=== PATIENT | male | born 1980 | race Caucasian/White ===

== ENCOUNTER 2016-04-27 18:27 | Inpatient (IN) | payer OTHER ==
[2016-04-27] MEDS ORDERED: LORazepam 2 MG/ML INJ IVP ONE ×2 (18:48→20:29)
--- NOTE | 2016-04-27 18:52 | CPEKG ---
Heart Rate: 94 RR Interval: 638 P-R Interval: 136 QRSD Interval: 94 QT Interval: 340 QTC Interval: 426 P Williams: 61 QRS Williams: 30 T Wave Williams: 36 EKG Severity - NORMAL ECG - EKG Impression: SINUS RHYTHM Electronically Signed By: Vahe Machuca 27-Apr-2016 19:00:43
--- NOTE | 2016-04-27 19:00 | EDPHY ---
H & P Time Seen by Provider: 04/27/16 18:43 HPI/ROS: CHIEF COMPLAINT: Hurts when I breathe HISTORY OF PRESENT ILLNESS: This 36-year-old man had a left knee injury on 04/03 wall long boarding. He had a tibial plateau and an ACL fracture and is scheduled to have surgery by an orthopedic surgeon in [place]. He has been wearing a left knee immobilizer since the injury. Starting yesterday afternoon and last night started having tightness all over his back with pain when he breathes in. Symptoms are severe today and associated with a "knot under my shoulder blade" sensation which is worsening. No hemoptysis. No additional leg swelling. Worse with exertion. Better standing up or lying down. REVIEW OF SYSTEMS: Eye: no change in vision ENT: no sore throat Cardiac: HPI Pulmonary: HPI Abdomen: no vomiting, diarrhea, abdominal pain Musculoskeletal: Left knee immobilizer Skin: no rash Neuro: no headache Constitutional: no fever : no urinary symptoms A comprehensive 10 point review of systems is otherwise negative aside from elements mentioned in the history of present illness. PAST MEDICAL HISTORY: Negative except for as above Social history: Nonsmoker General Appearance: Alert and conversant, cooperative. Eyes: No scleral icterus. ENT, Mouth: Normal mucous membranes. Respiratory: Mildly tachypneic but no wheezing or rhonchi or rales. Cardiovascular: Regular rate and rhythm. Tachycardic Gastrointestinal: Abdomen is soft and non tender. Neurological: Alert and oriented x3. Normally conversant. Face symmetric, normal movement and sensation in all extremities. Skin: Warm and dry, no rashes. Musculoskeletal: Left knee immobilizer but left foot is normal pulse and motor and sensory. Psychiatric: Not agitated. Emergency Department course/MDM: Patient has pleuritic chest pain and dyspnea in the setting of lower extremity immobilization for 3 weeks and initial resting pulse of 124. My suspicion for pulmonary embolism is moderate to high and I do not think and negative D-dimer would be adequate to exclude the diagnosis and so we will proceed directly to CT scan. Discussed and consented. 2000: Results discussed with the patient. Lovenox and admission to the hospital. 2030: Increased pain treated with 0.5 mg IV Dilaudid 1 mg IV Ativan. Smoking Status: Never smoked Constitutional: Initial Vital Signs Temperature (C) 36.8 C 04/27/16 18:39 Heart Rate 124 H 04/27/16 18:39 Respiratory Rate 16 04/27/16 18:39 Blood Pressure 115/91 H 04/27/16 18:39 O2 Sat (%) 94 04/27/16 18:39 O2 Delivery Mode Room Air Allergies/Adverse Reactions: No Known Allergies Allergy (Unverified 04/27/16 18:42) Home Medications: Medication Instructions Recorded NK [No Known Home Meds] 04/27/16 Medical Decision Making - Diagnostics EKG Interpretation: 12-lead EKG interpreted by me; official reading is in trace master. My interpretation is sinus rhythm rate 94 no acute ischemic changes. Imaging: CT personally interpreted by myself and reviewed with Dr. Villa at 8:02 a.m. as multiple pulmonary emboli greater right than left. Results discussed the patient and viewed with him on PACs. Differential Diagnosis: Differential diagnosis considered for shortness of breath including but not limited to pulmonary infectious process, COPD, asthma, pulmonary embolus and congestive heart failure. Consult/Admit Bed Type: [facility] - Data Points Laboratory Results: Laboratory Results 04/27/16 18:50 04/27/16 18:50 04/27/16 04/27/16 04/27/16 18:50 18:50 18:50 WBC 7.90 10^3/uL 10^3/uL (3.80-9.50) RBC 4.71 10^6/uL 10^6/uL (4.40-6.38) Hgb 15.1 g/dL g/dL (13.7-17.5) POC Hgb Hct 43.1 % % (40.0-51.0) POC Hct MCV 91.5 fL fL (81.5-99.8) MCH 32.1 pg pg (27.9-34.1) MCHC 35.0 g/dL g/dL (32.4-36.7) RDW 12.0 % % (11.5-15.2) Plt Count 180 10^3/uL 10^3/uL (150-400) MPV 10.0 fL fL (8.7-11.7) Neut % (Auto) 74.8 % H % (39.3-74.2) Lymph % (Auto) 13.8 % L % (15.0-45.0) [place] % (Auto) 9.7 % % (4.5-13.0) Eos % (Auto) 1.1 % % (0.6-7.6) Baso % (Auto) 0.3 % % (0.3-1.7) Nucleat RBC Rel Count 0.0 % % (0.0-0.2) Absolute Neuts (auto) 5.91 10^3/uL 10^3/uL (1.70-6.50) Absolute Lymphs (auto) 1.09 10^3/uL 10^3/uL (1.00-3.00) Absolute Monos (auto) 0.77 10^3/uL 10^3/uL (0.30-0.80) Absolute Eos (auto) 0.09 10^3/uL 10^3/uL (0.03-0.40) Absolute Basos (auto) 0.02 10^3/uL 10^3/uL (0.02-0.10) Absolute Nucleated RBC 0.00 10^3/uL 10^3/uL (0-0.01) Immature Gran % 0.3 % % (0.0-1.1) Immature Gran # 0.02 10^3/uL 10^3/uL (0.00-0.10) PT 14.2 SEC SEC (12.0-15.0) INR 1.11 (0.83-1.16) APTT 28.8 SEC SEC (23.0-38.0) POC Sodium Sodium 141 mEq/L mEq/L (134-144) POC Potassium Potassium 4.2 mEq/L mEq/L (3.5-5.2) POC Chloride Chloride 106 mEq/L mEq/L (97-110) Carbon Dioxide 18 mEq/l L mEq/l (22-31) Anion Gap 17 mEq/L H mEq/L (8-16) POC BUN BUN 18 mg/dL mg/dL (7-23) Creatinine 1.2 mg/dL mg/dL (0.7-1.3) POC Creatinine Estimated GFR > 60 Glucose 120 mg/dL H mg/dL (70-100) POC Glucose Calcium 10.1 mg/dL mg/dL (8.5-10.4) 04/27/16 18:47 WBC RBC Hgb POC Hgb 15.0 gm/dL gm/dL (14.5-17.3) Hct POC Hct 44 % % (42.8-50.6) MCV MCH MCHC RDW Plt Count MPV Neut % (Auto) Lymph % (Auto) [place] % (Auto) Eos % (Auto) Baso % (Auto) Nucleat RBC Rel Count Absolute Neuts (auto) Absolute Lymphs (auto) Absolute Monos (auto) Absolute Eos (auto) Absolute Basos (auto) Absolute Nucleated RBC Immature Gran % Immature Gran # PT INR APTT POC Sodium 141 mEq/L mEq/L (134-144) Sodium POC Potassium 3.9 mEq/L mEq/L (3.3-5.0) Potassium POC Chloride 107 mEq/L mEq/L (96-108) Chloride Carbon Dioxide Anion Gap POC BUN 18 mg/dL mg/dL (7-23) BUN Creatinine POC Creatinine 1.2 mg/dL mg/dL (0.8-1.5) Estimated GFR Glucose POC Glucose 122 mg/dL H mg/dL (70-100) Calcium Medications Given: Discontinued Medications Enoxaparin Sodium (Lovenox) 80 mg SC EDNOW ONE Stop: 04/27/16 19:55 Last Admin: 04/27/16 21:08 Dose: 80 mg Hydromorphone HCl (Dilaudid) 0.5 mg IVP EDNOW ONE Stop: 04/27/16 20:30 Last Admin: 04/27/16 20:41 Dose: 0.5 mg Lorazepam (Ativan Injection) 1 mg IVP EDNOW ONE Stop: 04/27/16 18:49 Last Admin: 04/27/16 18:52 Dose: 1 mg Lorazepam (Ativan Injection) 1 mg IVP EDNOW ONE Stop: 04/27/16 20:30 Last Admin: 04/27/16 20:41 Dose: 1 mg Point of Care Test Results: 04/27/16 18:47 POC Sodium 141 POC Potassium 3.9 POC Chloride 107 POC BUN 18 POC Creatinine 1.2 POC Glucose 122 H Departure - Departure Disposition: [facility] Acute Clinical Impression: Pulmonary embolism Qualifiers: Pulmonary embolism type: other Chronicity: acute Acute cor pulmonale presence: without acute cor pulmonale Qualified Code(s): I26.99 - Other pulmonary embolism without acute cor pulmonale Condition: Fair
[2016-04-27 19:07] LABS: % IMMATURE GRANULYOCYTES 0.3 % (0.0-1.1); ABSOLUTE IMMATURE GRANULOCYTES 0.02 10^3/uL (0.00-0.10); ADD DIFF? NO; ADD MORPH? NO; ADD SCAN? NO; ATYPICAL LYMPHOCYTE FLAG 0 (0-99); FRAGMENT RBC FLAG 0 (0-99); HEMATOCRIT 43.1 % (40.0-51.0); HEMOGLOBIN 15.1 g/dL (13.7-17.5); LEFT SHIFT FLG 0 (0-99); LIPEMIA HEMOLYSIS FLAG 90 (0-99); MEAN CELL HEMOGLOBIN 32.1 pg (27.9-34.1); MEAN CELL VOLUME 91.5 fL (81.5-99.8); PLATELET CLUMPS FLAG 10 (0-99); PLATELET COUNT 180 10^3/uL (150-400); RED BLOOD CELL COUNT 4.71 10^6/uL (4.40-6.38)
[2016-04-27] MEDS ORDERED: IOPAMIDOL (ISOVUE-300) 100 ML BTL IV ONE (19:11)
[2016-04-27 19:23] LABS: ANION GAP 17 mEq/L (8-16); CALCIUM 10.1 mg/dL (8.5-10.4); CARBON DIOXIDE 18 mEq/l (22-31); CHLORIDE 106 mEq/L (97-110); CREATININE 1.2 mg/dL (0.7-1.3); GLOMERULAR FILTRATION RATE > 60; GLUCOSE 120 mg/dL (70-100); POTASSIUM 4.2 mEq/L (3.5-5.2); SODIUM 141 mEq/L (134-144)
[2016-04-27 19:31] LABS: APTT 28.8 SEC (23.0-38.0); INR 1.11 (0.83-1.16); PROTIME(PATIENT) 14.2 SEC (12.0-15.0)
[2016-04-27] MEDS ORDERED: ENOXAPARIN 80 MG/0.8 ML SYR SC ONE (19:54)
[2016-04-27] MEDS ORDERED: HYDROmorphONE/DILAUDID 1 MG/ML SYR IVP ONE (20:29)
[2016-04-27] MEDS ORDERED: ONDANSETRON 4 MG/2 ML VIAL IVP PRN (20:56)
[2016-04-27] MEDS ORDERED: ONDANSETRON DISINTEGRATING 4 MG TAB PO PRN (20:56)
[2016-04-27] MEDS ORDERED: NS 1,000 ML IV SCH (21:00)
[2016-04-27] MEDS ORDERED: WARFARIN SODIUM 7.5 MG TAB PO SCH (21:00)
[2016-04-27] MEDS: oxyCODONE IR 5 MG TAB PO PRN (21:31)
[2016-04-27] MEDS: LORazepam 0.5 MG TAB PO PRN (22:14)
[2016-04-27] MEDS ORDERED: CYCLOBENZAPRINE 10 MG TAB PO SCH (22:30)
--- NOTE | 2016-04-27 22:36 | GHP ---
[f rep st] HISTORY AND PHYSICAL DATE OF ADMISSION: 04/27/2016 HISTORY OF PRESENT ILLNESS: The patient is a pleasant 36-year-old gentleman with no past medical hi story, other than a recent long board crash in [place] causing a tibial plateau fracture, as well as MCL and ACL tears and wearing a knee immobilizer since then and recovering well and [facility]. He is coming here in the next few days. Last night, he developed somewhat sudden-on set back pain that is pleuritic in nature, as well as shortness of breath. He felt his pain was nikki rly severe. He has had a cough productive of white mucus, but no hemoptysis. He has no family hist ory of clot and has not noticed any increased leg swelling. He describes the sensation as a knot under his shoulder blade. He sought care today and was diagnos ed with a large bilateral PE with high clot burden. REVIEW OF SYSTEMS: Complete 10-point review of systems conducted. Negative, except as noted in the HPI. PAST MEDICAL HISTORY: Orthopedic injury. ALLERGIES: No known drug allergies. HOME MEDICATIONS: None. SOCIAL HISTORY: He works art. He is originally from [place]. Nonsmoker. Drinks about a 12-pack a w belkofski. FAMILY HISTORY: Negative for VTE. PHYSICAL EXAM: VITAL SIGNS: Presenting vitals, temp 36.8, blood pressure 115/91, pulse 124, breath ing 16 times a minute, 94% on room air. GENERAL: No acute distress. Slightly anxious. HEENT: Sc lerae anicteric. Oropharynx clear. Mucous membranes moist. NECK: Supple without lymphadenopathy or JVD. LUNGS: Clear to auscultation bilaterally. HEART: S1, S2 without split S2. ABDOMEN: Sof t, nontender, nondistended. LOWER EXTREMITIES: Without edema. SKIN: Without rash. NEUROLOGIC: Nonfocal. DATA REVIEWED: Sodium 141, potassium 4.2, chloride 106, bicarb 18, BUN 18, creatinine 1.2, glucose 120, calcium 10.1. Coags normal. White count 7.9, hematocrit 43.1, platelets are 180,000. EKG, interpreted by me, shows sinus at 94 with normal axis and intervals. There is an S wave in yessica d I. There are no ST or T-wave changes. No prior for comparison. CTA of the chest shows bilateral pulmonary emboli with possible early pulmonary infarct in the right lower lobe. His symptoms of pain are predominantly on the right side. I discussed the case Dr. Foster. ASSESSMENT/PLAN: A 36-year-old gentleman with provoked pulmonary emboli. 1. Pulmonary emboli. The patient has pleuritic pain and tachycardia, but he is not particularly hy poxic, nor does his EKG show evidence of right heart strain. Given high clot burden, I will order e chocardiogram and follow. I have started him on enoxaparin and warfarin. 2. Medial collateral ligament and anterior cruciate ligament tears. This requires surgical interve ntion, but this clearly is going to be delayed, given his acute PE. 3. Sinus tachycardia, attributable to PE. 4. Metabolic acidosis. There is an anion gap. I will send a venous lactate and follow. 5. Anxiety. The patient received some Ativan in the emergency department. I will give him low-dos e Ativan while here. 6. Pain. Scheduled Tylenol p.r.n., oxycodone. I will also give him a trial of Flexeril, as he say s it feels like a muscle spasm. DISPOSITION: Inpatient status, telemetry. /[id number]/MODL
[2016-04-27] MEDS: ACETAMINOPHEN 325 MG TAB PO SCH (23:10)
[2016-04-28] MEDS: oxyCODONE IR 5 MG TAB PO PRN ×5 (00:34→21:44)
[2016-04-28] MEDS: ACETAMINOPHEN 325 MG TAB PO SCH ×3 (04:59→21:43)
[2016-04-28] MEDS: LORazepam 0.5 MG TAB PO PRN (05:02)
[2016-04-28 06:15] LABS: % IMMATURE GRANULYOCYTES 0.3 % (0.0-1.1); ABSOLUTE IMMATURE GRANULOCYTES 0.02 10^3/uL (0.00-0.10); ADD DIFF? NO; ADD MORPH? NO; ADD SCAN? NO; ATYPICAL LYMPHOCYTE FLAG 10 (0-99); FRAGMENT RBC FLAG 0 (0-99); HEMATOCRIT 39.6 % (40.0-51.0); HEMOGLOBIN 13.6 g/dL (13.7-17.5); LEFT SHIFT FLG 0 (0-99); LIPEMIA HEMOLYSIS FLAG 90 (0-99); MEAN CELL HEMOGLOBIN 32.2 pg (27.9-34.1); MEAN CELL HEMOGLOBIN CONCENTR. 34.3 g/dL (32.4-36.7); MEAN CELL VOLUME 93.6 fL (81.5-99.8); PLATELET CLUMPS FLAG 0 (0-99); PLATELET COUNT 152 10^3/uL (150-400); RED BLOOD CELL COUNT 4.23 10^6/uL (4.40-6.38); RED CELL DISTRIBUTION WIDTH 12.3 % (11.5-15.2)
[2016-04-28 06:30] LABS: ANION GAP 11 mEq/L (8-16); CALCIUM 8.8 mg/dL (8.5-10.4); CARBON DIOXIDE 22 mEq/l (22-31); CHLORIDE 107 mEq/L (97-110); GLOMERULAR FILTRATION RATE > 60; GLUCOSE 104 mg/dL (70-100); POTASSIUM 3.7 mEq/L (3.5-5.2); SODIUM 140 mEq/L (134-144)
[2016-04-28] MEDS ORDERED: ENOXAPARIN 80 MG/0.8 ML SYR SC SCH (07:00)
[2016-04-28] MEDS ORDERED: DIAZEPAM 10 MG/2 ML SYR ONE (09:22)
[2016-04-28] MEDS ORDERED: KETOROLAC 30 MG/1 ML SDV IVP ONE (10:00)
[2016-04-28] MEDS ORDERED: HYDROmorphONE/DILAUDID 1 MG/ML SYR IVP ONE ×2 (10:00)
[2016-04-28] MEDS ORDERED: DIAZEPAM 10 MG/2 ML SYR IVP ONE (10:00)
--- NOTE | 2016-04-28 10:01 | HOSPPROG ---
Hospitalist Progress Note Assessment/Plan: 36 y/o male new to my care with #Acute Provoked Bilat PE with pulmonary infarction and severe upper back pain -continue therapeutic Lovenox. Pt would like to start a DOAC. Will DC lovenox -start toradol for pain and IV dilaudid for breakthrough pain -increase flexeril to tid #MCL and ACL tears -cont knee immobilizer dispo: pt is high risk continue inpatient care Subjective: reports severe pleurtic upper back pain. refers to pain as muscle spasm pain. denies chest pain. no fever or chills Objective: Vital Signs Temp Pulse Resp BP Pulse Ox 37.1 C 117 H 22 H 118/77 94 04/28/16 09:06 04/28/16 09:06 04/28/16 09:06 04/28/16 09:06 04/28/16 09:06 Laboratory Results 04/28/16 06:00 04/28/16 06:00 04/27/16 04/28/16 04/29/16 05:59 05:59 05:59 Intake Total 100 Balance 100 PT 14.2 SEC (12.0-15.0) 04/27/16 18:50 INR 1.11 (0.83-1.16) 04/27/16 18:50 cta chest reviewed - Physical Exam Constitutional: uncomfortable Cardiovascular: regular rate and rhythym, no murmur, rub, or gallop, tachycardia , No JVD, No edema Respiratory: no respiratory distress, no rales or rhonchi, clear to auscultation , reduced air movement Gastrointestinal: normoactive bowel sounds, soft, non-tender abdomen, no palpable masses, No guarding, No rebound Neurologic: AAOx3, sensation intact bilaterally, CN II-XII Intact, No facial droop ICD10 Worksheet Patient Problems: Problems Problem Status Onset Pulmonary embolism Acute
[2016-04-28] MEDS: ENOXAPARIN 80 MG/0.8 ML SYR SC SCH ×2 (10:08→21:50)
[2016-04-28] MEDS ORDERED: HYDROmorphONE/DILAUDID 2 MG/ML INJ IVP PRN (15:20)
[2016-04-28] MEDS: HYDROmorphONE/DILAUDID 2 MG/ML INJ IVP PRN ×3 (15:57→20:25)
[2016-04-28] MEDS: CYCLOBENZAPRINE 10 MG TAB PO SCH ×2 (15:58→21:46)
[2016-04-28] MEDS: KETOROLAC 30 MG/1 ML SDV IVP PRN ×2 (15:58→21:48)
--- NOTE | 2016-04-28 17:08 | ECHO ---
[id number] + + [address] : : [place] [address] : : [phone] + + Adult Echocardiographic Report + -+ :Name: DAVID VIDALdoris Date: 04/28/2016 08:32 AM : : Hospital Admission Number: [id number] Location: 14 2: :: 1980 Gender: Male Height: 74 in : :Age: 36 yrs Race: WH Weight: 180 lb : :Reason For Study: Eval LV Fx : : BSA: 2.1 meters2 : :History: Multiple PE's : + -+ MMode/2D Measurements \T\ Calculations IVSd: 0.75 cm RVDd: 4.1 cm FS: 34.9 % Ao root diam: 3.0 cm LVPWd: 1.1 cm LVIDd: 5.6 cm EDV(Teich): 151.8 ml ACS: 1.7 cm LVIDs: 3.6 cm ESV(Teich): 55.4 ml EF(Teich): 63.5 % Normal Measurement Values: + + :LVIDd (3.5-5.7cm) IVSd (0.6-1.1cm) LVPWd (0.6-1.1cm) Aortic Root (2.0-3.7cm)Left Atrium (1.5-4.0cm): :LV Vol(d) (76-115ml) LV Vol(s) (29-48ml) Ejec Fraction (50-65%)PV Raymond (0.6- 1.2m/s) TV Raymond (0.4-1.0m/s) : :MV E Raymond (0.8-1.0m/s)MV A Raymond (0.3-1.0m/s)LVOT Raymond (0.7-1.2m/s) Asc Ao Raymond ( 0.9-1.8m/s) : + + Doppler Measurements \T\ Calculations MV E max raymond: Ao V2 max: LV V1 max: PA V2 max: 64.2 cm/sec 125.0 cm/sec 88.8 cm/sec 128.0 cm/sec MV A max raymond: Ao max PG: LV V1 max PG: PA max P.4 cm/sec 6.3 mmHg 3.2 mmHg 6.6 mmHg MV E/A: 1.3 TR max raymond: 319.0 cm/sec TR max P.7 mmHg RAP systole: 5.0 mmHg RVSP(TR): 45.7 mmHg Left Ventricle The left ventricle is normal in size. There is normal left ventricular wall thickness. The left ventricular ejection fraction is normal. Ejection Fraction = 64%. The left ventricular wall motion is normal. Right Ventricle The right ventricle is grossly normal size. Atria The left atrial size is normal. Right atrial size is normal. Mitral Valve The mitral valve is normal in structure and function. There is no evidence of mitral valve prolapse. There is no mitral valve stenosis. There is trace mitral regurgitation. Tricuspid Valve There is mild tricuspid regurgitation. Right ventricular systolic pressure is 45mmHg. There is Doppler evidence for mild pulmonary hypertension. Aortic Valve The aortic valve is normal in structure and function. There is no aortic stenosis. There is no aortic insufficiency. Pulmonic Valve The pulmonic valve is normal in structure and function. There is no pulmonic valvular regurgitation. Great Vessels The aortic root is normal size. Pericardium/Pleural There is no pericardial effusion. Conclusion A complete two-dimensional transthoracic echocardiogram was performed (2D, M-mode, Doppler and color flow Doppler). The left ventricular ejection fraction is normal. Ejection Fraction = 64%. The left ventricular wall motion is normal. The right ventricle is grossly normal size. The left atrial size is normal. Right atrial size is normal. The mitral valve is normal in structure and function. There is trace mitral regurgitation. There is mild tricuspid regurgitation. Right ventricular systolic pressure is 45mmHg. There is Doppler evidence for mild pulmonary hypertension. The aortic valve is normal in structure and function. The aortic root is normal size. There is no pericardial effusion. Final Reading Physician: Baljinder Wiley signed on 04/28/2016 05:07 PM Ordering Physician: Car Hobbs Performed By: Wilber Galvez, CS
[2016-04-29] MEDS: HYDROmorphONE/DILAUDID 2 MG/ML INJ IVP PRN ×3 (01:01→23:17)
[2016-04-29] MEDS: LORazepam 0.5 MG TAB PO PRN ×3 (03:53→21:42)
[2016-04-29] MEDS: KETOROLAC 30 MG/1 ML SDV IVP PRN ×4 (03:54→23:16)
[2016-04-29] MEDS: ACETAMINOPHEN 325 MG TAB PO SCH (05:32)
[2016-04-29] MEDS: oxyCODONE IR 5 MG TAB PO PRN ×4 (05:58→21:38)
[2016-04-29] MEDS: CYCLOBENZAPRINE 10 MG TAB PO SCH (09:10)
[2016-04-29] MEDS: ENOXAPARIN 80 MG/0.8 ML SYR SC SCH ×2 (09:10→21:42)
--- NOTE | 2016-04-29 10:00 | HOSPPROG ---
Hospitalist Progress Note Assessment/Plan: 36 y/o male with #Acute Provoked Bilat PE with pulmonary infarction and severe upper back pain -continue therapeutic Lovenox. Pt is leaning towards DC on a DOAC, but has yet to make a final decision. I explained the risks and benefits of both warfarin and DOAC treatment and was supportive of the use of both agents. -continue toradol for pain and IV dilaudid for breakthrough pain -increase oxyIR to 10-15mg po q4 -no improvement with flexeril #Upper back pain possibly multifactorial in the setting of pulm infarction and muscle spasm -pt reports heat helps -no improvement with Flexeril will try Skelaxin #MCL and ACL tears -cont knee immobilizer dispo: pt is high risk continue inpatient care Subjective: Ankit continues to have severe right upper back pain that is worse with movement. denies shortness of breath. Pain is better with IV dilaudid, but continues to require q2hour dosing. Objective: Vital Signs Temp Pulse Resp BP Pulse Ox 36.5 C 65 14 123/66 H 99 04/29/16 07:29 04/29/16 07:29 04/29/16 07:29 04/29/16 07:29 04/29/16 07:29 Laboratory Results 04/28/16 06:00 04/28/16 06:00 04/28/16 04/29/16 04/30/16 05:59 05:59 05:59 Intake Total 100 Output Total 500 Balance 100 -500 PT 14.2 SEC (12.0-15.0) 04/27/16 18:50 INR 1.11 (0.83-1.16) 04/27/16 18:50 - Physical Exam Constitutional: no apparent distress, appears nourished, not in pain Cardiovascular: regular rate and rhythym, no murmur, rub, or gallop, No edema Respiratory: no respiratory distress, no rales or rhonchi, clear to auscultation Gastrointestinal: normoactive bowel sounds, soft, non-tender abdomen, no palpable masses, No guarding, No rebound Skin: no rashes or abrasions, no fluctuance, no induration Neurologic: AAOx3, CN II-XII Intact, No facial droop ICD10 Worksheet Patient Problems: Problems Problem Status Onset Pulmonary embolism Acute
[2016-04-29] MEDS ORDERED: POLYETHYLENE GLYCOL 3350 17 GM PKT PO PRN (10:05)
[2016-04-29] MEDS ORDERED: LACTULOSE 20 GM/30 ML UDCUP PO PRN (10:05)
[2016-04-29] MEDS ORDERED: MAGNESIUM HYDROXIDE 30 ML UDCUP PO PRN (10:05)
[2016-04-29] MEDS ORDERED: BISACODYL 10 MG SUPP PR PRN (10:05)
[2016-04-29] MEDS: ACETAMINOPHEN 500 MG TAB PO SCH ×2 (13:21→21:41)
[2016-04-29] MEDS: METAXALONE 800 MG TAB PO SCH ×2 (17:36→21:42)
[2016-04-29] MEDS: SENNOSIDES/DOCUSATE SODIUM TAB PO SCH (21:54)
[2016-04-30] MEDS: ACETAMINOPHEN 500 MG TAB PO SCH ×3 (05:05→21:03)
[2016-04-30] MEDS: KETOROLAC 30 MG/1 ML SDV IVP PRN (05:10)
[2016-04-30] MEDS: ENOXAPARIN 80 MG/0.8 ML SYR SC SCH ×2 (10:09→21:04)
[2016-04-30] MEDS: SENNOSIDES/DOCUSATE SODIUM TAB PO SCH ×2 (10:10→21:04)
[2016-04-30] MEDS: METAXALONE 800 MG TAB PO SCH ×3 (10:10→21:03)
[2016-04-30] MEDS: oxyCODONE IR 5 MG TAB PO PRN ×3 (10:10→21:02)
--- NOTE | 2016-04-30 14:43 | HOSPPROG ---
Hospitalist Progress Note Assessment/Plan: 36-year-old healthy man is admitted with a large pulmonary embolus. He had a accident on his long board a month ago resulting in a tibial plateau fracture and ACL mcl tear. His leg has been immobilized for the last month. # provoked PE associated with pulmonary infarcts and significant pain. * Continue Lovenox until we can determine anticoagulant for home use * Will send a prescription to [facility] in [facility] to see if they will pay for Eliquis * Discussed patient need for a primary care physician upon discharge and follow- up * He will also need follow-up with his orthopedist eventually. # tibial plateau fracture, MCL ACL tear. Currently followed by an orthopedist in [place]. * Repair once his anticoagulation is finished. # chronic back pain. He typically treats this with marijuana as an outpatient I suspect his back pain at this time is likely secondary to pulmonary infarcts rather than acute exacerbation of his chronic back pain. Will continue treatment with opioids and muscle relaxants as needed Subjective: Patient new to me chart reviewed. Spent over 35 minutes with patient and girlfriend discussing treatment options and prognosis with his pulmonary embolus. Currently complains of back pain otherwise no other symptoms he is quite anxious about not being able to exercise and is stir crazy. Objective: Vital Signs Temp Pulse Resp BP Pulse Ox 36.9 C 76 18 142/88 H 96 04/30/16 10:59 04/30/16 10:59 04/30/16 10:59 04/30/16 10:59 04/30/16 10:59 Laboratory Results 04/28/16 06:00 04/28/16 06:00 04/29/16 04/30/16 05/01/16 05:59 05:59 06:59 Output Total 500 Balance -500 PT 14.2 SEC (12.0-15.0) 04/27/16 18:50 INR 1.11 (0.83-1.16) 04/27/16 18:50 - Time Spent With Patient Time Spent with Patient: greater than 35 minutes Time Spent with Patient: Greater than 35 minutes spent on this patients care, greater than 50% of time spent counseling, educating, and coordinating care regarding the above mentioned plan. - Physical Exam Constitutional: uncomfortable Eyes: PERRL, EOMI Ears, Nose, Mouth, Throat: moist mucous membranes Cardiovascular: regular rate and rhythym, no murmur, rub, or gallop Respiratory: no respiratory distress, no rales or rhonchi, clear to auscultation Gastrointestinal: normoactive bowel sounds, soft, non-tender abdomen, no palpable masses Skin: warm, normal color Neurologic: AAOx3 Psychiatric: interacting appropriately, not anxious ICD10 Worksheet Patient Problems: Problems Problem Status Onset Pulmonary embolism Acute
[2016-05-01] MEDS: LORazepam 0.5 MG TAB PO PRN (01:34)
[2016-05-01] MEDS: oxyCODONE IR 5 MG TAB PO PRN ×2 (01:34→08:32)
[2016-05-01] MEDS: ACETAMINOPHEN 500 MG TAB PO SCH (05:18)
[2016-05-01 07:23] VITALS: BP 148/97; PULSE 74; RESP 12; TEMP 98.8; O2SAT 96
[2016-05-01] MEDS: METAXALONE 800 MG TAB PO SCH (08:23)
[2016-05-01] MEDS: SENNOSIDES/DOCUSATE SODIUM TAB PO SCH (08:23)
[2016-05-01] MEDS: ENOXAPARIN 80 MG/0.8 ML SYR SC SCH (08:25)
--- NOTE | 2016-05-01 10:47 | GDS ---
[f rep st] DISCHARGE SUMMARY DIAGNOSES: 1. Moderate large volume pulmonary embolism. 2. Deep venous thrombosis. 3. Recent tibial plateau fracture. 4. Anterior cruciate ligament and medial collateral ligament tear. 5. Mild pulmonary hypertension. PROCEDURES DONE: 1. CT angiogram of the chest. Moderate to large volume bilateral pulmonary emboli, right greater t leon left. 2. Echocardiogram. EF 64%. Right ventricular is grossly normal in size. Right ventricular pressu re 45. Mild pulmonary hypertension. HOSPITAL COURSE: The patient is a 36-year-old healthy man who recently had a long board accident, s ustaining a left tibial plateau fracture and an ACL/MCL tear. He was placed in a splint 24 hours a day for about a month. He has had increasing swelling in that leg and over the few days preceding a dmission complained of increasing right-sided back pain. On admission, [facility] a moderate to large pulmonary embolus. He was admitted and started on subcu Lovenox. Echocardiogram was done and it did show normal right ventricular function, but mild pulmonary hyper tension. Possible sleep apnea versus PE. He can get a followup echo in the future. He did well ov er the course of his hospitalization with decreased pain and improved oxygenation. At the time of d ischarge, his vital signs are stable. CONDITION ON DISCHARGE: He has been afebrile, heart rate 74, blood pressure 148/97 to 111/90, 96% o n room air, respirator rate of 12. DISCHARGE MEDICATIONS: Eliquis 10 mg b.i.d. to complete a week and then 5 mg b.i.d. ongoing, oxycod one as needed for pain, Skelaxin as needed for muscle spasms. Please see discharge medication list for full details. FOLLOWUP INSTRUCTIONS: He needs to call and make an appointment with the primary care provider with in the next 2 weeks. I gave him multiple contacts to try to establish care. He will also be discha rged on Eliquis. I gave him a card and he has activated the card and will brass pickler his medication to day. He will likely need 6 months of therapy. After therapy, he will proceed to get his knee repai red. I recommend postop prophylactic doses for a month after surgery. Total time spent with patient and coordination of care is 35 minutes. /[id number]/MODL
== END 2016-05-01 11:21 | disposition home or self-care (01) | DRG 176 ==
LOC: EEVIPCON 19:53 → F1N 20:57 → F3E 04-28 17:10
PROVIDERS: ADMIT Internal Medicine; ATTEND Internal Medicine
DX: I26.99 Other pulmonary embolism without acute cor pulmonale (principal); I82.409 Acute embolism and thrombosis of unspecified deep veins of unspecified lower extremity; E87.2 Acidosis; I27.2 Other secondary pulmonary hypertension; S82.142D Displaced bicondylar fracture of left tibia, subsequent encounter for closed fracture with routine healing; S83.512D Sprain of anterior cruciate ligament of left knee, subsequent encounter; S83.412D Sprain of medial collateral ligament of left knee, subsequent encounter; R00.0 Tachycardia, unspecified; F41.9 Anxiety disorder, unspecified; G89.29 Other chronic pain; M54.9 Dorsalgia, unspecified
CPT/HCPCS: 82947-QW; 96374; J1170; J1650; J1885; Q9967

== ENCOUNTER → 2018-08-20 | Outpatient (CLI) | payer OTHER | LOC: FIMAGING 18:53 ==